=== PATIENT | female | born 1985 | race Two or more races ===

== ENCOUNTER → 2024-11-08 | Outpatient (CLI) | payer MEDICAID, SELFPAY ==
--- NOTE | 2024-11-08 | XR_ITS ---
Examination: Foot, left, 3 views Technique: AP, oblique, lateral views foot, 3 views Date and time of exam: November 08, 2024 1308 hours INDICATIONS: Injury to the foot yesterday, foot pain. FINDINGS: Mild osteopenia Soft tissue swelling at the fifth metatarsophalangeal joint No acute fracture No dislocation IMPRESSION: No acute fracture
--- NOTE | 2024-11-08 | XR_ITS ---
EXAMINATION: Ankle, left 3 views . Technique: Ankle AP, oblique, lateral 3 views Date and time of exam: November 08, 2024 1308 hours INDICATIONS: Left ankle injury yesterday FINDINGS: Prominent osteopenia No acute fracture No dislocation IMPRESSION: No acute fracture
== END | disposition home or self-care (01) ==
PROVIDERS: PCP Nurse Practitioner Family; Referring Provider Nurse Practitioner Family; Visit Provider Nurse Practitioner Family
DX: S99.912A Unspecified injury of left ankle, initial encounter (principal); S99.922A Unspecified injury of left foot, initial encounter; X58.XXXA Exposure to other specified factors, initial encounter
CPT/HCPCS: 73610; 73630